=== PATIENT | male | born 1985 | race Two or more races ===

== ENCOUNTER 2016-09-30 16:58 | Emergency (ER) | payer SELFPAY ==
[2016-09-30 17:10] VITALS: BP 117/67; PULSE 56; RESP 18; TEMP 98.1; O2SAT 99
--- NOTE | 2016-09-30 17:57 | C.PDOC ---
History Of Present Illness 30 y/o M presents with racing thoughts and mood swings. Patient states he was here 3 years ago and was started on Xanax, which he states he has taken intermittently but no longer has. He states he does not have a PMD but has followed up at the clinic but notes that he was forbid from continuing going there due to his marijuana use even though that is legal in his home state of [place]. He notes that he was told his symptoms might by from thyroid disease in the past. Denies HI/SI/hallucinations. Time Seen by Provider: 09/30/16 17:21 Chief Complaint (Nursing): Anxiety Past Medical History Vital Signs: Last Vital Signs Temp 98.1 F 09/30/16 17:04 Pulse 56 L 09/30/16 17:04 Resp 18 09/30/16 17:04 BP 117/67 09/30/16 17:04 Pulse Ox 99 09/30/16 18:20 - Medical History PMH: Anxiety, Hyperthyroidism (no meds) Family History: States: No Known Family Hx - Social History Hx Alcohol Use: Yes Hx Substance Use: Yes - Immunization History Hx Tetanus Toxoid Vaccination: No Hx Influenza Vaccination: No Hx Pneumococcal Vaccination: No Review Of Systems Except As Marked, All Systems Reviewed And Found Negative. Constitutional: Negative for: Fever Respiratory: Negative for: Shortness of Breath Physical Exam - Physical Exam Additional Physical Exam Comments: Constitutional: No acute distress. Head: Normocephalic. Atraumatic. Eyes: PERRL. EOMI ENT: Moist mucous membranes. Neck: Supple. Cardiovascular: Regular rate. Radial pulses 2+ bilaterally. Chest: No tenderness. Respiratory: Clear to auscultation bilaterally. GI: Soft. Nontender. Nondistended. Back: No CVA tenderness. No midline tenderness. Musculoskeletal: No tenderness or swelling of extremities. Skin: No rash. Neurologic: Alert, no focal deficit. ED Course And Treatment - Laboratory Results Result Diagrams: 09/30/16 18:01 09/30/16 18:01 O2 Sat by Pulse Oximetry: 99 Medical Decision Making Medical Decision Making: Will have evaluated by Psych. Will medically clear. Patient eloped from the ER. Disposition - Disposition Disposition: ELOPEMENT - ER ONLY Disposition Time: 18:39 Condition: GOOD - Clinical Impression Clinical Impression: Psychiatric complaint
[2016-09-30 18:08] LABS: BASO # 0.1 K/uL (0.0-0.2); BASO % 0.8 % (0.0-2.0); EOS # 0.1 K/uL (0.0-0.7); EOS % 1.3 % (0.0-4.0); HEMATOCRIT 37.5 % (35.0-51.0); LYMPH # 1.8 K/uL (1.0-4.3); MEAN CELL VOLUME 91.7 fL (80.0-94.0); MEAN CORPUSCULAR HEMOGLOBIN 31.4 pg (27.0-31.0); MEAN CORPUSCULAR HGB CONC 34.3 g/dL (33.0-37.0); MONO # 0.6 K/uL (0.0-0.8); MONO % 7.2 % (0.0-10.0); RED CELL DISTRIBUTION WIDTH 13.2 % (11.5-14.5); URINE BILIRUBIN NEGATIVE (NEGATIVE); URINE BLOOD NEGATIVE (NEGATIVE); URINE COLOR Colorless (YELLOW); URINE GLUCOSE (UA) NORMAL (Normal); URINE KETONE NEGATIVE (NEGATIVE); URINE LEUKOCYTE ESTERASE NEG Leu/uL (Negative); URINE PROTEIN NEGATIVE (NEGATIVE); URINE UROBILINOGEN NORMAL mg/dL (0.2-1.0); WHITE BLOOD COUNT 7.9 K/uL (4.8-10.8)
[2016-09-30 18:15] LABS: CHLORIDE 101 mmol/L (98-107)
[2016-09-30 18:16] LABS: POTASSIUM 3.1 mmol/L (3.6-5.2); SODIUM 140 mmol/L (132-148)
[2016-09-30 18:18] LABS: ALB/GLOB RATIO 1.4 (1.0-2.1); ALKALINE PHOSPHATASE 49 U/L (38-126); AST/SGOT 42 U/L (17-59); BILIRUBIN,TOTAL 0.4 mg/dL (0.2-1.3); BLOOD UREA NITROGEN 8 mg/dL (9-20); CARBON DIOXIDE 29 mmol/L (22-30); GFR AFRICAN-AMERICAN > 60; TOTAL PROTEIN 6.4 g/dL (6.3-8.3)
[2016-09-30 18:19] LABS: ALCOHOL SERUM < 10 mg/dl (0-10); ALT/SGPT 35 U/L (21-72); CALCIUM 8.9 mg/dl (8.6-10.4); GLUCOSE,RANDOM 120 mg/dL (75-110)
[2016-09-30 18:50] LABS: THYROID STIMULATING HORMONE 0.23 mIU/L (0.46-4.68)
== END 2016-09-30 18:38 | disposition left against medical advice (07) ==
LOC: C.ER 16:58
DX: Z00.8 Encounter for other general examination (principal)
CPT/HCPCS: 80053; 81001; 84443; 85025; 99283; G0480

== ENCOUNTER 2016-10-31 13:02 | Emergency (ER) | payer MEDICAID, OTHER ==
[2016-10-31 13:38] VITALS: BP 125/76; PULSE 76; RESP 16; TEMP 97.9; O2SAT 100
--- NOTE | 2016-10-31 14:16 | C.PDOC ---
History Of Present Illness 30 y/o male with history of anxiety presents to emergency department with complaint of increasing anxiety. Patient requesting psychiatric evaluation. Denies any other complaints. Time Seen by Provider: 10/31/16 13:43 Chief Complaint (Nursing): Anxiety History Per: Patient History/Exam Limitations: no limitations Onset/Duration Of Symptoms: Days Current Symptoms Are (Timing): Worse Suicide/Self Injury Attempted (Context): None Associated Symptoms: Anxiety. denies: Suicidal Thoughts, Suicidal Plan Recent travel outside of the [place]: No Past Medical History Reviewed: Historical Data, Nursing Documentation, Vital Signs Vital Signs: Last Vital Signs Temp 97.9 F 10/31/16 13:33 Pulse 76 10/31/16 13:33 Resp 16 10/31/16 13:33 BP 125/76 10/31/16 13:33 Pulse Ox 100 10/31/16 16:36 - Medical History PMH: Anxiety, Hyperthyroidism (no meds) Family History: States: Unknown Family Hx - Social History Hx Tobacco Use: Yes (5-6 cigarettes daily) Hx Alcohol Use: Yes Hx Substance Use: Yes - Immunization History Hx Tetanus Toxoid Vaccination: No Hx Influenza Vaccination: No Hx Pneumococcal Vaccination: No Review Of Systems Except As Marked, All Systems Reviewed And Found Negative. Constitutional: Negative for: Fever, Chills Cardiovascular: Negative for: Chest Pain, Palpitations Respiratory: Negative for: Shortness of Breath Gastrointestinal: Negative for: Nausea, Vomiting, Abdominal Pain Skin: Negative for: Rash Neurological: Negative for: Dizziness Psych: Positive for: Anxiety. Negative for: Suicidal ideation Physical Exam - Physical Exam Appears: Non-toxic, No Acute Distress, Other (anxious appearing) Skin: Normal Color, Warm, Dry Head: Atraumatic, Normacephalic Oral Mucosa: Moist Chest: Symmetrical Cardiovascular: Rhythm Regular Respiratory: Normal Breath Sounds, No Rales, No Rhonchi, No Wheezing Gastrointestinal/Abdominal: Soft, No Tenderness, No Distention, No Guarding, No Rebound Back: Normal Inspection Extremity: Normal ROM, Capillary Refill (< 2 sec. ) Neurological/Psych: Oriented x3, Normal Speech, Normal Cognition ED Course And Treatment - Laboratory Results Result Diagrams: 10/31/16 14:17 10/31/16 14:17 O2 Sat by Pulse Oximetry: 100 (RA) Pulse Ox Interpretation: Normal Medical Decision Making Medical Decision Making: Plan: * EKG * Bloodwork * Crisis evaluation * Reassess Progress Notes: ekg sinus roddy [address] t wave changes, normal intervlas. 400: pt reassese: medically cleared, cleard by crisis for dc. pt eloped prior to d/c instructions, final reassesment. Disposition - Disposition Disposition: ELOPEMENT - ER ONLY Disposition Time: 15:59 Condition: STABLE Additional Instructions: please follow up with your doctor. return to er with worsening symptoms or concerns. Instructions: Anxiety (ED) Forms: [employer] (Serbian) - Clinical Impression Clinical Impression: Anxiety - Scribe Statement The provider has reviewed the documentation as recorded by the Scribe Nilo Cordero All medical record entries made by the Indiraibe were at my direction and personally dictated by me. I have reviewed the chart and agree that the record accurately reflects my personal performance of the history, physical exam, medical decision making, and the department course for this patient. I have also personally directed, reviewed, and agree with the discharge instructions and disposition.
[2016-10-31 14:28] LABS: BASO # 0.1 K/uL (0.0-0.2); BASO % 0.7 % (0.0-2.0); EOS # 0.2 K/uL (0.0-0.7); EOS % 2.2 % (0.0-4.0); LYMPH # 2.5 K/uL (1.0-4.3); LYMPH % 24.6 % (20.0-40.0); MEAN CELL VOLUME 91.9 fL (80.0-94.0); MEAN CORPUSCULAR HEMOGLOBIN 32.1 pg (27.0-31.0); MEAN PLATELET VOLUME 7.4 fL (7.2-11.7); MONO # 0.8 K/uL (0.0-0.8); MONO % 7.9 % (0.0-10.0); NRBC % 0.1 % (0.0-2.0); WHITE BLOOD COUNT 10.1 K/uL (4.8-10.8)
[2016-10-31 14:30] LABS: CHLORIDE 97 mmol/L (98-107)
[2016-10-31 14:31] LABS: POTASSIUM 4.1 mmol/L (3.6-5.2); SODIUM 138 mmol/L (132-148)
[2016-10-31 14:33] LABS: BILIRUBIN,TOTAL 0.5 mg/dL (0.2-1.3); CARBON DIOXIDE 29 mmol/L (22-30); GFR AFRICAN-AMERICAN > 60
[2016-10-31 14:34] LABS: ALB/GLOB RATIO 1.4 (1.0-2.1); ALCOHOL SERUM < 10 mg/dl (0-10); ALKALINE PHOSPHATASE 52 U/L (38-126); ALT/SGPT 26 U/L (21-72); AST/SGOT 22 U/L (17-59); BLOOD UREA NITROGEN 14 mg/dL (9-20); CALCIUM 8.8 mg/dl (8.6-10.4); GLUCOSE,RANDOM 86 mg/dL (75-110); TOTAL PROTEIN 6.9 g/dL (6.3-8.3)
[2016-10-31 14:39] LABS: RBC URINE 2 /hpf (0-3); URINE BILIRUBIN NEGATIVE (NEGATIVE); URINE BLOOD NEGATIVE (NEGATIVE); URINE COLOR Yellow (YELLOW); URINE GLUCOSE (UA) NORMAL (Normal); URINE KETONE NEGATIVE (NEGATIVE); URINE LEUKOCYTE ESTERASE NEG Leu/uL (Negative); URINE PROTEIN NEGATIVE (NEGATIVE); URINE UROBILINOGEN NORMAL mg/dL (0.2-1.0); WBC URINE 1 /hpf (0-5)
[2016-10-31 15:05] LABS: THYROID STIMULATING HORMONE 0.87 mIU/L (0.46-4.68)
--- NOTE | 2016-11-11 09:21 | CARD ---
APPROVED REPORT EKG Measurement Heart [id number] <Conclusion> Marked sinus bradycardia Abnormal ECG
== END 2016-10-31 16:10 | disposition left against medical advice (07) ==
LOC: C.ER 13:02
DX: F41.9 Anxiety disorder, unspecified (principal)